=== PATIENT | male | born 1940 | race Caucasian/White ===

== ENCOUNTER → 2019-04-14 12:26 | Outpatient (CLI) | payer MEDICARE, OTHER, SELFPAY ==
--- NOTE | 2019-04-14 12:28 | DI.MRI.S_ITS ---
PROCEDURE: MR LUMBAR SPINE WO CON INDICATIONS: lower back pain TECHNIQUE: Noncontrast sagittal T1 spin echo and T2 fast echo, sagittal STIR, axial T1 and T2 fast spin echo through the lumbar spine. In cases with scoliosis, additional coronal T2 fast spin echo may be performed. COMPARISON: None. FINDINGS: Image quality: Excellent. Alignment and Curvature: There is trace L2-L3 and L3-L4 retrolisthesis. Bone Marrow: Mild reactive endplate changes noted adjacent to the L1-L2, L2-L3, L3-L4, L4-L5 and L5-S1 discs. No acute vertebral body compression fractures. Spinal Cord: Conus medullaris terminates at the L1 level. Visualized cord demonstrates normal signal and size. Paraspinous Soft Tissues: No paravertebral masses. L1-L2: Loss of disc signal and height. Mild, diffuse disc bulge. Mild central canal narrowing. Mild bilateral neural foraminal narrowing. No neural compression. L2-L3: Loss of the signal slight loss of disc height. Mild, diffuse disc bulge and mild bilateral facet hypertrophy. Mild to moderate narrowing of the central canal. Mild bilateral neural foraminal narrowing. No neural compression. L3-L4: Loss of disc signal and slight loss of disc height. Mild, diffuse disc bulge. Mild facet and severe ligamentum flavum hypertrophy. Severe narrowing of the central canal with compression of the nerve roots of the cauda equina. Moderate bilateral neural foraminal narrowing. L4-L5: Loss of disc signal and height. Mild diffuse disc bulge. Mild bilateral facet hypertrophy. Mild to moderate narrowing of the central canal. Severe right and moderate left neural foraminal narrowing with compression of the exiting right L4 nerve root. L5-S1: Loss of disc signal and height. Mild diffuse disc bulge. Mild bilateral facet hypertrophy. No central stenosis. Moderate right and severe left neural foraminal narrowing with compression of the exiting left L5 nerve root. IMPRESSION: 1. Multilevel degenerative disc disease. 2. Multilevel facet arthropathy. 3. Severe L3-L4 central canal narrowing. Mild to moderate L2-L3 and L4-L5 central canal narrowing. Mild L1-L2 central canal narrowing. 4. Severe right and moderate left L4-L5 neural foraminal narrowing. Moderate right and severe left L5-S1 neural foraminal narrowing. Moderate bilateral L3-L4 neural foraminal narrowing. Mild bilateral L1-L2 and L2-L3 neural foraminal narrowing. 5. Compression of the nerves of cauda equina at the level of the L3-L4 disc secondary to central canal narrowing. 6. Compression of the exiting right L4 nerve root and the exiting left L5 nerve root secondary to neural foraminal narrowing. Dictated by: Sunita Santillan MD, PhD on 04/16/2019 at 12:20 Approved by: Sunita Santillan MD, PhD on 04/16/2019 at 12:25
== END ==
PROVIDERS: Family Provider Family Medicine; PCP Family Medicine; Visit Provider Physical Medicine & Rehabilitation
DX: M54.5 Low back pain (principal); M47.27 Other spondylosis with radiculopathy, lumbosacral region; M47.26 Other spondylosis with radiculopathy, lumbar region; M51.36 Other intervertebral disc degeneration, lumbar region; M51.37 Other intervertebral disc degeneration, lumbosacral region; M48.061 Spinal stenosis, lumbar region without neurogenic claudication; M48.07 Spinal stenosis, lumbosacral region
CPT/HCPCS: 72148

== ENCOUNTER 2019-11-01 14:14 | Emergency (ER) | payer MEDICARE, OTHER, SELFPAY ==
[2019-11-01 14:30] VITALS: BP 133/86; PULSE 79; RESP 16; TEMP 36.7; O2SAT 97; BMI 26.6
[2019-11-01 14:50] LABS: Add Manual Diff / Slide Review NO; Basophils Absolute Auto 0 /uL (0-100); Basophils Percent Auto 0.2 % (0-2); Eosinophils Absolute Auto 200 /uL (0-450); Eosinophils Percent Auto 1.8 % (2-4); Hematocrit 45.5 % (41-53); Hemoglobin 15.5 g/dL (13.5-17.5); Lymphocytes Absolute Auto 2400 /uL (1100-4500); Lymphocytes Percent Auto 18.7 % (25-40); Mean Corpuscular HGB Conc 34.1 % (30-36); Mean Corpuscular Hemoglobin 33.9 PG (26-34); Mean Corpuscular Volume 99.6 fL (80-100); Monocytes Absolute Auto 1600 /uL (0-900); Monocytes Percent Auto 12.4 % (3-14); Neutrophils Absolute Auto 8500 /uL (1500-7000); Neutrophils Percent Auto 66.9 % (50-75); Platelet Count 196 X10^3/uL (150-400); Red Blood Cell Count 4.57 X10^6/uL (4.5-5.9); Red Cell Distribution Width 13.7 % (11.6-14.8); White Blood Cell Count 12.7 X10^3/uL (4.5-11.0)
[2019-11-01 14:51] LABS: INR 1.1 (0.9-1.3); Prothrombin Time 13.2 SECONDS (10.1-12.7)
[2019-11-01 14:54] LABS: PTT Partial Thromboplastin Tim 31 SECONDS (26.4-36.2)
[2019-11-01 14:56] LABS: Alanine Aminotransferase 54 IU/L (<50); Albumin 4.5 g/dL (3.5-5.0); Albumin Globulin Ratio 1.4 (1.0-2.8); Alkaline Phosphatase 57 U/L (38-126); Aspartate Aminotransferase 37 IU/L (17-59); BUN Creatinine Ratio 18.9 (6-22); Bilirubin Total 0.8 mg/dL (0.2-1.3); Blood Urea Nitrogen 27 mg/dL (9-20); Calcium 10.5 mg/dL (8.4-10.2); Carbon Dioxide 28 mmol/L (22-32); Chloride 100 mmol/L (98-107); Estimated Glomerular Filt Rate 47.7 mL/min (>60); Globulin 3.2 g/dL (1.7-4.1); Glucose 102 mg/dL (80-110); HEMOLYSIS < 15 (0-50); Potassium 3.7 mmol/L (3.4-5.1); Sodium 137 mmol/L (137-145); Total Protein 7.7 g/dL (6.3-8.2)
--- NOTE | 2019-11-01 15:20 | ED_ITS ---
HPI - GI Bleed <MARQUISE Balderrama - Last Filed: 11/01/19 18:34> General Chief complaint: GI Bleed Stated complaint: PAIN IN STOMACH Time Seen by Provider: 11/01/19 14:34 Mode of arrival: Ambulatory History of Present Illness HPI Narrative: 78-year-old male with a history of stage 3 kidney disease, presenting to the emergency department complaining of mid lower abdominal pain, diarrhea, and bright red blood in his stool for the past 4 days, occurs only when passing stool. Patient states the pain is a cramp like pain that increases before a bowel movement. Patient states he took Pepto-Bismol which has helped a little. He states the bright red blood is mixed in his stool, in the toilet, and on the toilet paper. Patient denies any aggravating or alleviating symptoms. Patient denies any nausea, vomiting, chest pain, fevers, shortness of breath, dizziness, cough, or any other concerns. Related Data Home Medications Medication Instructions Recorded Confirmed valsartan 80 mg tablet 80 mg PO DAILY 04/02/19 11/02/19 Previous Rx's Medication Instructions Recorded allopurinol 300 mg PO QDAY #90 tab 09/01/16 atorvastatin [Lipitor] 20 mg PO Q EVENING #90 tab 09/01/16 triamcinolone acetonide 1 kari TOPICAL SEE INSTRUCTIONS 02/10/17 #454 gm ciprofloxacin HCl 500 mg PO BID 7 Days #14 tab 11/01/19 metronidazole [Flagyl] 500 mg PO TID 7 Days #21 tab 11/01/19 Allergies Allergy/AdvReac Type Severity Reaction Status Date / Time No Known Drug Allergies Allergy Verified 05/21/19 13:52 Review of Systems <MARQUISE Balderrama - Last Filed: 11/01/19 18:34> Review of Systems Narrative: REVIEW OF SYSTEMS: GENERAL: Denies fever, chills, malaise, or wt. loss. HENT: No head trauma, sore throat, or dysphagia. EYES: No loss of vision, double vision, eye pain, or irritation. CARDIOVASCULAR: No chest pain, palpitations, or orthopnea. RESPIRATORY: No shortness of breath or cough. GASTROINTESTINAL: Complains of mid lower abdominal pain, see HPI GENITOURINARY: No flank pain, urinary incontinence, hesitancy, frequency, or dysuria. MUSCULOSKELETAL: No pain, weakness, or trauma. INTEGUMENTARY: No rash, lesions, or pruritus. NEURO: No numbness, tingling, memory loss, confusion, or headaches. PSYCH: No behavior or mood changes. Patient History <MARQUISE Balderrama - Last Filed: 11/01/19 18:34> Medical History (Updated 11/02/19 @ 03:41 by MARQUISE Stephens) Central stenosis of spinal canal (Acute) Dyslipidemia (Acute) Facet arthropathy, lumbosacral (Acute) Foraminal stenosis of lumbosacral region (Acute) Gout (Acute) Hypertension (10/28/15) Lumbosacral spondylosis with radiculopathy (Acute) Surgical History (Updated 11/02/19 @ 03:41 by MARQUISE Stephens) History of appendectomy (Acute) History of cataract surgery (Acute) History of tonsillectomy (Acute) Family History (Updated 11/02/19 @ 03:42 by MARQUISE Stephens) Father Hypertension Mother Rheumatic fever Brother No significant medical problems Social History household members: spouse Smoking Status: Never smoker alcohol intake: current Smoking Status: Never smoker Substance Use Type: does not use Exam <MARQUISE Balderrama - Last Filed: 11/01/19 18:34> Initial Vital Signs Initial Vital Signs: Vital Signs Temperature 98.1 F 11/01/19 14:30 Pulse Rate 79 11/01/19 14:30 Respiratory Rate 16 11/01/19 14:30 Blood Pressure 133/86 11/01/19 14:30 Pulse Oximetry 97 11/01/19 14:30 PHYSICAL EXAMINATION: GENERAL: Well groomed, alert, and cooperative. Answers questions promptly and appropriately. Vital signs noted. HENT: Normocephalic, atraumatic. Decreased hearing, patient worse hearing aids. Oral mucosa is pink and moist. EYES: Conjunctiva pink, sclera white, no periorbital swelling. CARDIOVASCULAR: S1 and S2 sounds normal. Regular rate and rhythm, no murmurs, clicks, or bruits. No pedal edema. RESPIRATORY: Normal respiratory rate, trachea midline, airway patent. No strid or, nasal flaring or accessory muscle use. Lungs are clear in all mullen without wheeze, rhonchi, or crackles. GASTROINTESTINAL: Bowel sounds normoactive. Abdomen is soft, significant diffuse tenderness in particular to right upper quadrant and mid lower abdominal area.. No organomegaly, no palpable masses. RECTAL: Positive stool occult test, hemorrhoids visible. GENITALURINARY: No flank tenderness. MUSCULOSKELETAL: Normal gait and coordination. Equal tone and mass bilaterally. EXTREMITIES: CMS intact, no pedal edema. SKIN: Warm, dry, soft, appropriate color for ethnicity. No lesions, rashes, or wounds to visualized areas. NEURO: Alert and Oriented X 3. Good coordination. No ataxia, or sensory deficits, or cognitive issues. PSYCH: Appropriate affect and mood. <Nori Mohr MD - Last Filed: 11/02/19 07:17> Initial Vital Signs Initial Vital Signs: Vital Signs Temperature 98.1 F 11/01/19 14:30 Pulse Rate 79 11/01/19 14:30 Respiratory Rate 16 11/01/19 14:30 Blood Pressure 133/86 11/01/19 14:30 Pulse Oximetry 97 11/01/19 14:30 Course <MARQUISE Balderrama - Last Filed: 11/01/19 18:34> Course Course Narrative: Patient received ciprofloxacin IV, and Flagyl orally. He was given p.o. fluids and food, tolerated well without vomiting. After much discussion with patient, patient stated he would rather be discharged in stay in a hotel close by the hospital versus be admitted. Dr. Powell presents to the emergency department and agreed that patient is a candidate for outpatient treatment. Orders Ordered: Discontinued Medications Sodium Chloride (Normal Saline 0.9%) 1,000 mls @ 1,000 mls/hr IV BOLUS ONE Stop: 11/01/19 16:34 Last Infusion: 11/01/19 17:54 Dose: 0 mls/hr Documented by: Infusion: 11/01/19 16:32 Dose: 400 mls/hr Documented by: Admin: 11/01/19 15:56 Dose: 1,000 mls/hr Documented by: IWONA Metronidazole (Flagyl) 500 mg in 100 mls @ 100 mls/hr IV NOW ONE Stop: 11/01/19 17:15 Last Admin: 11/01/19 17:08 Dose: Not Given Documented by: IWONA Ciprofloxacin (Cipro) 400 mg in 200 mls @ 200 mls/hr IV NOW [facility] Last Infusion: 11/01/19 17:53 Dose: 0 mls/hr Documented by: Admin: 11/01/19 16:37 Dose: 200 mls/hr Documented by: IWONA Metronidazole (Metronidazole) 500 mg PO NOW ONE Stop: 11/01/19 16:51 Last Admin: 11/01/19 17:06 Dose: 500 mg Documented by: IWONA Metronidazole (Metronidazole) 500 mg PO NOW ONE Stop: 11/01/19 17:58 Last Admin: 11/01/19 18:00 Dose: 500 mg Documented by: IWONA Consultations Consultation #1: Patient staffed with Dr. Mohr, discussed lab results, CT results, and treatment with antibiotics. Consultation #2: Spoke with Dr. Powell who visualized patient, we agreed due to healthy appearance and patient preference, he was a candidate for outpatient treatment with strict ED return precautions. Vital Signs Vital signs: Vital Signs - 8 hr 11/01/19 14:30 11/01/19 17:47 Temperature 98.1 F Pulse Rate 79 80 Respiratory Rate 16 16 Blood Pressure 133/86 125/76 Pulse Oximetry 97 97 <Nori Mohr MD - Last Filed: 11/02/19 07:17> Orders Ordered: Discontinued Medications Sodium Chloride (Normal Saline 0.9%) 1,000 mls @ 1,000 mls/hr IV BOLUS ONE Stop: 11/01/19 16:34 Last Infusion: 11/01/19 17:54 Dose: 0 mls/hr Documented by: Infusion: 11/01/19 16:32 Dose: 400 mls/hr Documented by: Admin: 11/01/19 15:56 Dose: 1,000 mls/hr Documented by: IWONA Metronidazole (Flagyl) 500 mg in 100 mls @ 100 mls/hr IV NOW ONE Stop: 11/01/19 17:15 Last Admin: 11/01/19 17:08 Dose: Not Given Documented by: IWONA Ciprofloxacin (Cipro) 400 mg in 200 mls @ 200 mls/hr IV NOW [facility] Last Infusion: 11/01/19 17:53 Dose: 0 mls/hr Documented by: Admin: 11/01/19 16:37 Dose: 200 mls/hr Documented by: IWONA Metronidazole (Metronidazole) 500 mg PO NOW ONE Stop: 11/01/19 16:51 Last Admin: 11/01/19 17:06 Dose: 500 mg Documented by: IWONA Metronidazole (Metronidazole) 500 mg PO NOW ONE Stop: 11/01/19 17:58 Last Admin: 11/01/19 18:00 Dose: 500 mg Documented by: IWONA Vital Signs Vital signs: Vital Signs - 8 hr 11/01/19 14:30 11/01/19 17:47 Temperature 98.1 F Pulse Rate 79 80 Respiratory Rate 16 16 Blood Pressure 133/86 125/76 Pulse Oximetry 97 97 MDM - GI Bleed <MARQUISE Balderrama - Last Filed: 11/01/19 18:34> Medical Records Attestation: I reviewed the patient's medical records. Lab Data Attestation: I reviewed the patient's lab results. Result diagrams: 11/01/19 14:26 11/01/19 14:26 Labs: Lab Results 11/01/19 11/01/19 11/01/19 Range/Units 14:26 14:26 14:26 WBC 12.7 H (4.5-11.0) X10^3/uL RBC 4.57 (4.5-5.9) X10^6/uL Hgb 15.5 (13.5-17.5) g/dL Hct 45.5 (41-53) % MCV 99.6 (80-100) fL MCH 33.9 (26-34) PG MCHC 34.1 (30-36) % RDW 13.7 (11.6-14.8) % Plt Count 196 (150-400) X10^3/uL Neut % (Auto) 66.9 (50-75) % Lymph % (Auto) 18.7 L (25-40) % Kern % (Auto) 12.4 (3-14) % Eos % (Auto) 1.8 L (2-4) % Baso % (Auto) 0.2 (0-2) % Neut # (Auto) 8500 H (1471-3132) /uL Lymph # (Auto) 2400 (1873-1249) /uL Kern # (Auto) 1600 H (0-900) /uL Eos # (Auto) 200 (0-450) /uL Baso # (Auto) 0 (0-100) /uL PT 13.2 H (10.1-12.7) SECONDS INR 1.1 (0.9-1.3) APTT 31 (26.4-36.2) SECONDS Sodium 137 (137-145) mmol/L Potassium 3.7 (3.4-5.1) mmol/L Chloride 100 (98-107) mmol/L Carbon Dioxide 28 (22-32) mmol/L BUN 27 H (9-20) mg/dL Creatinine 1.43 H (0.66-1.25) mg/dL Estimated GFR 47.7 L (>60) mL/min BUN/Creatinine Ratio 18.9 (6-22) Glucose 102 (80-110) mg/dL Calcium 10.5 H (8.4-10.2) mg/dL Total Bilirubin 0.8 (0.2-1.3) mg/dL AST 37 (17-59) IU/L ALT 54 H (<50) IU/L Alkaline Phosphatase 57 (38-126) U/L Total Protein 7.7 (6.3-8.2) g/dL Albumin 4.5 (3.5-5.0) g/dL Globulin 3.2 (1.7-4.1) g/dL Albumin/Globulin Ratio 1.4 (1.0-2.8) Point of Care Testing Stool Occult Blood Positive Imaging Data CT scan - abdomen/pelvis: Radiologist's Impression: [address] [address] [address] Scan Report Signed Patient: Ranjit Sosa JMR#: [id number] : 1940Acct:[id number] Age/Sex: 78 / MDate of Service: 11/01/19 Loc: ED Accession Number: [id number] Procedure: CT abdomen pelvis w con Ordering Provider: Sara Lopez PROCEDURE: CT ABDOMEN PELVIS W CON INDICATIONS: RUQ, lower mid abd pain with blood in stool TECHNIQUE: After the administration of intravenous contrast, 5 mm thick sections acquired from the diaphragm to the symphysis. 5 mm coronal and sagittal reformats were acquired. For radiation dose reduction, the following was used: automated exposure control, adjustment of mA and/or kV according to patient size. COMPARISON: None. FINDINGS: Image quality: Excellent. ABDOMEN: Lung bases: Lung bases are clear. Heart size is normal. Solid organs: A 1.0 x 2.0 cm hypodensity in the anterior left hepatic lobe adjacent to the falciform ligament most likely secondary to focal fat. Hepatic steatosis. Liver is normal in size and enhancement. Gallbladder is mildly distended. Biliary system is non dilated. Pancreas enhances normally. Spleen is normal in size and enhancement. No adrenal nodules. Kidneys demonstrate normal size and enhancement, without hydronephrosis. Bilateral renal cysts. Peritoneum and bowel: There is segmental thickening of descending colon, consistent with colitis. Appendix is not visualized. Bowel loops demonstrate normal wall thickness and caliber. No free fluid or air. Nodes and vessels: No retroperitoneal or mesenteric adenopathy by size criteria. Aorta and inferior vena cava are normal in size. Miscellaneous: No ventral hernias. PELVIS: Genitourinary: Bladder wall thickness is normal. Small Hutch bladder diverticulum on the right side. Prostate is enlarged. Miscellaneous: No inguinal hernias or adenopathy. Bones: No suspicious bony lesions. No vertebral body compression fractures. IMPRESSION: 1. Segmental thickening of descending colon consistent with segmental colitis. Please correlate clinically. After adequate treatment, colonoscopy is suggested for followup evaluation to rule out colon cancer patient could have similar CT appearance. 2. Diverticulosis without acute diverticulitis. 3. Enlarged prostate. 4. Hepatic steatosis. 5. Bilateral renal cysts. Dictated by: Tana Broussard M.D. on 11/01/2019 at 15:39 Approved by: Tana Broussard M.D. on 11/01/2019 at 15:50 ECG Data Interpretation: Normal sinus rhythm, rate 76, OK interval 165, QTC 419. No ST elevation or ST depression. Small RBBB. EKG viewed by Dr. Mohr per potrocael. [facility] Narrative Medical decision making narrative: 78yo male with history of stage 3 chronic kidney disease, presenting to the emergency department for abdominal pain and blood in stools. CT results show colitis. Differential includes infectious colitis (most likely due to elevated WBC, was patient does not have an autoimmune history, segment appearance, and recent duration since onset), autoimmune colitis, and malignancy (further study suggested after resolution of current inflammatory colitis seen on CT). Less likely perforation due to pain control without any medications, CT shows no findings of perforation Patient was well-appearing, hemodynamically stable, able to eat and drink without vomiting or severe nausea. Pain was controlled without pain medication. Dr. Powell was consulted about possible admit versus discharge, after evaluation and discussion with patient about preference, patient was discharged. He does live on [facility] but states he is going to stay at a hotel in [place] this evening to be able to return to the emergency department quickly if symptoms worsen. Patient was counseled extensively about return emergency department for any new or worsening symptoms. He agrees to plan of care verbalized understanding. We discussed the importance of close follow-up in the next week. We attempted to get a stool sample in the emergency department today, patient was not able to give one. Less concern for acute blood loss as hemoglobin and hematocrit are stable, no bleeding heard in the emergency department over 3-4 hours, and patient was not symptomatic. Additionally, patient reported blood only when passing stool. <Nori Mohr MD - Last Filed: 11/02/19 07:17> Lab Data Labs: Lab Results 11/01/19 11/01/19 11/01/19 Range/Units 14:26 14:26 14:26 WBC 12.7 H (4.5-11.0) X10^3/uL RBC 4.57 (4.5-5.9) X10^6/uL Hgb 15.5 (13.5-17.5) g/dL Hct 45.5 (41-53) % MCV 99.6 (80-100) fL MCH 33.9 (26-34) PG MCHC 34.1 (30-36) % RDW 13.7 (11.6-14.8) % Plt Count 196 (150-400) X10^3/uL Neut % (Auto) 66.9 (50-75) % Lymph % (Auto) 18.7 L (25-40) % Kern % (Auto) 12.4 (3-14) % Eos % (Auto) 1.8 L (2-4) % Baso % (Auto) 0.2 (0-2) % Neut # (Auto) 8500 H (3004-1864) /uL Lymph # (Auto) 2400 (9953-1980) /uL Kern # (Auto) 1600 H (0-900) /uL Eos # (Auto) 200 (0-450) /uL Baso # (Auto) 0 (0-100) /uL PT 13.2 H (10.1-12.7) SECONDS INR 1.1 (0.9-1.3) APTT 31 (26.4-36.2) SECONDS Sodium 137 (137-145) mmol/L Potassium 3.7 (3.4-5.1) mmol/L Chloride 100 (98-107) mmol/L Carbon Dioxide 28 (22-32) mmol/L BUN 27 H (9-20) mg/dL Creatinine 1.43 H (0.66-1.25) mg/dL Estimated GFR 47.7 L (>60) mL/min BUN/Creatinine Ratio 18.9 (6-22) Glucose 102 (80-110) mg/dL Calcium 10.5 H (8.4-10.2) mg/dL Total Bilirubin 0.8 (0.2-1.3) mg/dL AST 37 (17-59) IU/L ALT 54 H (<50) IU/L Alkaline Phosphatase 57 (38-126) U/L Total Protein 7.7 (6.3-8.2) g/dL Albumin 4.5 (3.5-5.0) g/dL Globulin 3.2 (1.7-4.1) g/dL Albumin/Globulin Ratio 1.4 (1.0-2.8) Point of Care Testing Stool Occult Blood Positive Discharge Plan Departure Patient Disposition: Home Clinical Impression: Colitis Discharge Date/Time: 11/01/19 18:01 Instructions: DI for Colitis Activity Restrictions/Additional Instructions: Thank you for entrusting me with your care today. As discussed, you have col itis. We are unsure the exact cause of this at this time but suspect this is most likely due to a bacteria. I prescribed you antibiotics, you must take both antibiotics as prescribed. As we discussed, it is a good idea to stay in [place] this evening in case your condition worsens so you can return to the hospital immediately. I have given you the 1st dose of your antibiotics in the emergency department and we have given you an additional dose of metronidazole take this evening. Please tow picker your prescriptions tomorrow morning. Your prescriptions were sent to [facility]. Do not drink alcohol with these medications, it will make you violently ill. Do not increased or engage in any unusual strenuous activity as a side effect of ciprofloxacin may cause tendon rupture, extensive activity worsens this risk. Continue to drink fluid, you may eat food as tolerated. Follow-up with your primary care provider in the next week for further evaluation. The radiologist reading your CT recommends a colonoscopy after infection has resolved. Incidental findings found on imaging include: Diverticulosis, enlarged prostate, and cysts on her kidneys. Please discussed these with your primary care provider. Return to the emergency department immediately for any new or worsening symptoms such as severe pain, increased blood in stools, high fevers, uncontrollable vomiting, or any other concerns. Prescriptions: New metronidazole [Flagyl] 500 mg tablet 500 mg PO TID 7 Days Qty: 21 RF: 0 ciprofloxacin HCl 500 mg tablet 500 mg PO BID 7 Days Qty: 14 RF: 0 No Action atorvastatin [Lipitor] 20 MG tablet 20 mg PO Q EVENING Qty: 90 RF: 3 allopurinol 300 MG tablet 300 mg PO QDAY Qty: 90 RF: 3 triamcinolone acetonide 0.1 % cream 1 kari Topical SEE INSTRUCTIONS Qty: 454 RF: 3 valsartan 80 mg tablet 80 mg PO DAILY RF: 0 Referrals: Chidi Singleton MD [Primary Care Provider] -
[2019-11-01] MEDS: SODIUM CHLORIDE 0.9% 1,000 ML 1000 ML IV (15:56)
[2019-11-01] MEDS: CIPROFLOXACIN 400 MG/200 ML PIGGYBACK 200 MG IV (16:37)
--- NOTE | 2019-11-01 16:45 | PM.CN ---
History of Present Illness Consult details Date Patient Seen: 11/01/19 Time Patient Seen: 16:45 Chief complaint: PAIN IN STOMACH Reason for consult: abdominal pain Requesting provider: Sara Lopez Narrative: Ranjit Sosa is a 78-year-old male with past medical history of CKD 3, hypertension, and spinal stenosis who presented to the emergency room with bright red blood per rectum for the past 3-4 days. He denies any fevers or chills, and denies any abdominal pain at rest but does note some left lower quadrant pain when getting up to stand. He has been tolerating oral intake with fluid and water. He denies any nausea or vomiting. He denies any weight loss or weight gain. His abdominal pain did not seem to be worse with meals. In the emergency room, his vital signs are unremarkable, lab studies were notable for a mild leukocytosis at 12.7, hemoglobin of 15.5, and a platelet count of 196. Chemistry showed a creatinine of 1.43 (baseline appears to approximately be 1.2), BUN of 27, mild ALT elevation at 54 and calcium at 10.5 with an elevated albumin at 4.5. CT imaging showed segmental colitis and diverticulosis but no diverticulitis. Medicine was consulted for further evaluation and possible admission. Upon my evaluation he was well-appearing in nature and did not have a significant amount of left lower quadrant pain. Patient endorsed that he would be amenable to a trial at home of antibiotics to see if there is improvement. He lives on [facility] but [facility]. Meds Home Medications and Allergies Home Medications Medication Instructions Recorded Confirmed Type allopurinol 300 mg PO QDAY #90 tab 09/01/16 05/21/19 Rx atorvastatin [Lipitor] 20 mg PO Q EVENING #90 tab 09/01/16 05/21/19 Rx triamcinolone acetonide 1 kari TOPICAL SEE INSTRUCTIONS 02/10/17 05/21/19 Rx #454 gm valsartan 80 mg tablet 80 mg PO DAILY 04/02/19 05/21/19 History Allergies Allergy/AdvReac Type Severity Reaction Status Date / Time No Known Drug Allergies Allergy Verified 05/21/19 13:52 Review of Systems Review of Systems Narrative: All other systems reviewed with the patient and are negative unless otherwise stated. Exam Vital Signs (past 8 hours): - 11/01/19 14:30 Temperature 98.1 F Pulse Rate 79 Respiratory Rate 16 Blood Pressure 133/86 Pulse Oximetry 97 Oxygen Delivery Method Room Air Narrative Exam Narrative: GENERAL APPEARANCE: Well developed, well nourished, elderly male in no acute distress. LUNGS: Auscultation of the lungs revealed no wheezes, rhonchi, or rales. CARDIOVASCULAR: There was a regular rate and rhythm without any murmurs, gallops, rubs. Peripheral pulses were 2+ and symmetric. ABDOMEN: Soft, mildly distended with mild left lower quadrant pain. There was no guarding or rebound. MUSCULOSKELETAL: There was no tenderness or effusions noted. Muscle strength and tone were normal. EXTREMITIES: No cyanosis, clubbing or edema. NEUROLOGIC: Alert and oriented x 3. Normal affect. Objective Imaging CT scan - abdomen: Radiologist's impression: 1. Segmental thickening of descending colon consistent with segmental colitis. Please correlate clinically. After adequate treatment, colonoscopy is suggested for followup evaluation to rule out colon cancer patient could have similar CT appearance. 2. Diverticulosis without acute diverticulitis. 3. Enlarged prostate. 4. Hepatic steatosis. 5. Bilateral renal cysts. Labs Result Diagrams: 11/01/19 14:26 11/01/19 14:26 Labs: Laboratory Results - last 24 hr 11/01/19 11/01/19 11/01/19 14:26 14:26 14:26 WBC 12.7 H RBC 4.57 Hgb 15.5 Hct 45.5 MCV 99.6 MCH 33.9 MCHC 34.1 RDW 13.7 Plt Count 196 Neut % (Auto) 66.9 Lymph % (Auto) 18.7 L [place] % (Auto) 12.4 Eos % (Auto) 1.8 L Baso % (Auto) 0.2 Neut # (Auto) 8500 H Lymph # (Auto) 2400 [place] # (Auto) 1600 H Eos # (Auto) 200 Baso # (Auto) 0 PT 13.2 H INR 1.1 APTT 31 Sodium 137 Potassium 3.7 Chloride 100 Carbon Dioxide 28 BUN 27 H Creatinine 1.43 H Estimated GFR 47.7 L BUN/Creatinine Ratio 18.9 Glucose 102 Calcium 10.5 H Total Bilirubin 0.8 AST 37 ALT 54 H Alkaline Phosphatase 57 Total Protein 7.7 Albumin 4.5 Globulin 3.2 Albumin/Globulin Ratio 1.4 Assessment & Plan Assessment & Plan narrative: Ranjit Sosa is a 78-year-old male with past medical history of CKD 3, hypertension, and spinal stenosis who presented to the emergency room with bright red blood per rectum for the past 3-4 days. 1. Segmental colitis associated with diverticulosis. Acute -given clinical constellation of symptoms and CT imaging this likely represents segmental colitis associated with diverticulosis, or SCAD. Given patient is well-appearing, and although labs are borderline with mild leukocytosis, I do think that he would do well with outpatient treatment. He will stick around [place] this evening to see if antibiotics are clinically helping him. He should be given return precautions. -recommend treatment with ciprofloxacin and Flagyl for a duration of 14 days -he should follow-up with his primary care provider and be referred for a colonoscopy as an outpatient. -further differential includes malignancy, other infectious colitis, ischemia (however this is unlikely at this time given his well appearance and lack of pain out of proportion), less likely diverticulitis or IBD. Please do not hesitate to contact the hospitalist tax consultant with additional questions if they arise.
[2019-11-01] MEDS: metroNIDAZOLE 250 MG TABLET 500 MG PO ×2 (17:06→18:00)
[2019-11-01 17:47] VITALS: BP 125/76; PULSE 80; RESP 16; O2SAT 97
--- NOTE | 2019-11-10 15:16 | PC.NURSE ---
pt called wondering if should take flagl, consult dr. saha, pt should be taking vancomycin only, spoke with pt and he is doing that.
== END 2019-11-01 18:01 | disposition home or self-care (01) ==
PROVIDERS: Emergency Provider Nurse Practitioner; Family Provider Family Medicine; PCP Family Medicine
DX: K52.9 Noninfective gastroenteritis and colitis, unspecified (principal); K92.1 Melena; N18.6 End stage renal disease
CPT/HCPCS: 36415; 74177; 80053; 82272; 85025; 85610; 85730; 93005; 96365; 99284; J0744; Q9967

== ENCOUNTER 2019-11-02 01:57 | Inpatient (IN) | payer MEDICARE, OTHER, SELFPAY ==
[2019-11-02] VITALS (15 sets, daily range): BP systolic 103–134; BP diastolic 65–79; PULSE 67–92; RESP 15–18; TEMP 36.5–37.1; O2SAT 94–100; BMI 25.8
--- NOTE | 2019-11-02 02:04 | ED_ITS ---
HPI - General Adult General Chief complaint: Abdominal Pain Stated complaint: colitis Time Seen by Provider: 11/02/19 01:58 Source: patient Mode of arrival: Ambulatory Limitations: no limitations History of Present Illness HPI narrative: 78-year-old male seen in the emergency department earlier this evening for abdominal pain. Was diagnosed with colitis. Was given a dose of Cipro and Flagyl. Was evaluated by hospitalist service for potential admission however according to their note and the ED provider's note appears the patient was very well-appearing and normal vital signs pain is controlled without medic ation and was tolerating oral intake so a trial of home antibiotic treatment was initiated. He has not taken any oral antibiotics. He did stay in the local area last evening. He states that since he was discharged pain is increased specifically his left lower quadrant. Has not had any bowel movement since he left. No nausea vomiting. No fevers. He returned because the pain. Related Data Home Medications Medication Instructions Recorded Confirmed valsartan 80 mg tablet 80 mg PO DAILY 04/02/19 05/21/19 Previous Rx's Medication Instructions Recorded allopurinol 300 mg PO QDAY #90 tab 09/01/16 atorvastatin [Lipitor] 20 mg PO Q EVENING #90 tab 09/01/16 triamcinolone acetonide 1 kari TOPICAL SEE INSTRUCTIONS 02/10/17 #454 gm ciprofloxacin HCl 500 mg PO BID 7 Days #14 tab 11/01/19 metronidazole [Flagyl] 500 mg PO TID 7 Days #21 tab 11/01/19 Allergies Allergy/AdvReac Type Severity Reaction Status Date / Time No Known Drug Allergies Allergy Verified 05/21/19 13:52 Review of Systems Constitutional Constitutional: Denies fever(s) Gastrointestinal Gastrointestinal: Reports abdominal pain, Denies change in stool character, Denies nausea and Denies vomiting Musculoskeletal Musculoskeletal: Denies myalgias and Denies arthralgias Integumentary/Breasts Skin/Breast: Denies lesions and Denies rash Neurologic Neurologic: Denies behavioral changes Psychiatric Psychiatric: Denies behavioral changes Hematologic/Lymphatic Hematologic/Lymphatic: Denies easy bleeding and Denies easy bruising Patient History Medical History Central stenosis of spinal canal (Acute) Facet arthropathy, lumbosacral (Acute) Foraminal stenosis of lumbosacral region (Acute) Lumbosacral spondylosis with radiculopathy (Acute) Social History Smoking Status: Never smoker Smoking Status: Never smoker Substance Use Type: does not use Exam Initial Vital Signs Initial Vital Signs: Vital Signs Temperature 98.2 F 11/02/19 02:05 Pulse Rate 92 H 11/02/19 02:05 Respiratory Rate 15 11/02/19 02:05 Blood Pressure 130/72 11/02/19 02:05 Pulse Oximetry 100 11/02/19 02:05 Const General: cooperative Limitations: mental status not altered HENMT Head: normal to inspection and normocephalic Resp Effort & Inspection: normal respiratory effort Auscultation: clear to auscultation bilaterally Cardio Rate: regular rate Rhythm: regular rhythm GI Inspection: non-distended Palpation: soft and tender (Left lower quadrant) Skin Rashes: no rashes Neuro General: alert and awake Cognition: normal cognition Speech: speech normal Extrem General: normal to inspection and capillary refill normal Psych Appearance: grossly normal and well kempt Course Orders Ordered: ED Orders 11/02/19 02:08 Lactate (Lactic Acid) Stat 11/02/19 02:17 Complete Blood Count AUTO DIFF Stat 11/02/19 02:18 Comprehensive Metabolic Panel Stat Lipase Stat Procalcitonin Stat Sodium Chloride (Normal Saline 0.9%) 1,000 mls @ 125 mls/hr IV CONT PEPITO Last Admin: 11/02/19 02:14 Dose: 125 mls/hr Documented by: ALEXA Discontinued Medications Morphine Sulfate (Morphine) 4 mg IV NOW ONE Stop: 11/02/19 02:07 Last Admin: 11/02/19 02:15 Dose: 4 mg Documented by: ALEXA Vital Signs Vital signs: Vital Signs - 8 hr 11/02/19 02:05 Temperature 98.2 F Pulse Rate 92 H Respiratory Rate 15 Blood Pressure 130/72 Pulse Oximetry 100 Medical Decision Making MDM Narrative Medical decision making narrative: Review the patient's note and CT scan from earlier showed a slight leukocytosis with a slight elevation in his creatinine and what looked to be in apparent isolated colitis left lower quadrant. Patient was given a dose of antibiotics prior to discharge in the taking anything since then. Returns because he has had increasing pain specifically in his left lower quadrant that he states was worse than when he 1st came in the emergency department yesterday. Discussed the case with hospitalist will admit for further evaluation and treatment. Discharge Plan Departure Patient Disposition: Admitted as Observation Clinical Impression: Colitis Referrals: Chidi Singleton MD [Primary Care Provider] -
[2019-11-02] MEDS: SODIUM CHLORIDE 0.9% 1,000 ML 125 ML IV ×5 (02:14→14:05)
[2019-11-02] MEDS: MORPHINE 4 MG/ML INJ IV (02:15)
[2019-11-02 02:34] LABS: Add Manual Diff / Slide Review NO; Basophils Absolute Auto 0 /uL (0-100); Basophils Percent Auto 0.3 % (0-2); Eosinophils Absolute Auto 200 /uL (0-450); Eosinophils Percent Auto 1.8 % (2-4); Hematocrit 43.2 % (41-53); Hemoglobin 14.8 g/dL (13.5-17.5); Lymphocytes Absolute Auto 1800 /uL (1100-4500); Lymphocytes Percent Auto 13.9 % (25-40); Mean Corpuscular HGB Conc 34.2 % (30-36); Mean Corpuscular Volume 99.3 fL (80-100); Monocytes Absolute Auto 1500 /uL (0-900); Monocytes Percent Auto 11.4 % (3-14); Neutrophils Absolute Auto 9600 /uL (1500-7000); Neutrophils Percent Auto 72.6 % (50-75); Platelet Count 184 X10^3/uL (150-400); Red Blood Cell Count 4.35 X10^6/uL (4.5-5.9); Red Cell Distribution Width 13.6 % (11.6-14.8); White Blood Cell Count 13.2 X10^3/uL (4.5-11.0)
[2019-11-02 02:41] LABS: Magnesium 1.6 mg/dL (1.6-2.3)
[2019-11-02 02:43] LABS: Alanine Aminotransferase 47 IU/L (<50); Albumin 4.1 g/dL (3.5-5.0); Albumin Globulin Ratio 1.4 (1.0-2.8); Alkaline Phosphatase 79 U/L (38-126); Aspartate Aminotransferase 35 IU/L (17-59); BUN Creatinine Ratio 21.8 (6-22); Bilirubin Total 0.5 mg/dL (0.2-1.3); Blood Urea Nitrogen 31 mg/dL (9-20); Calcium 9.5 mg/dL (8.4-10.2); Carbon Dioxide 23 mmol/L (22-32); Chloride 105 mmol/L (98-107); Estimated Glomerular Filt Rate 48.1 mL/min (>60); Glucose 136 mg/dL (80-110); HEMOLYSIS 18 (0-50); Lipase 156 U/L (23-300); Sodium 138 mmol/L (137-145); Total Protein 7.1 g/dL (6.3-8.2)
[2019-11-02 02:59] LABS: Procalcitonin < 0.05 ng/mL (<0.5)
[2019-11-02] MEDS: metroNIDAZOLE 500 MG/100 ML PIGGYBACK 100 MG IV ×2 (02:59→10:20)
--- NOTE | 2019-11-02 03:25 | P.HP_ITS ---
History of Present Illness History of Present Illness Date Patient Seen: 11/02/19 Time Patient Seen: 03:11 Chief complaint: colitis Narrative: Mr. Ranjit Sosa is a 78-year-old male with past medical history of CKD 3, hypertension, hyperlipidemia, gout and spinal stenosis who returns to the emergency department with worsening abdominal pain. He had presented to the emergency room yesterday afternoon with complaints of bright red blood per rectum for the past 3-4 days. At that time he complains of pain in the left lower quadrant that describes as dull and aching. He returns this morning with worsening pain stating he has been unable to sleep and could not lay on his side and reports abdominal distension. He rates his pain as 7/10. He continues to d artis having fevers or chills and has had no further bloody stools since yesterday morning. The patient was discharged from the ER this afternoon on oral antibiotics with a follow-up plan to which the patient was agreeable. He was provided prescription for Cipro and Flagyl which she had not yet obtained. Following discharge the patient consumed a steak and potatoes and salad dinner and stated a local hotel as he lives on [facility]. He denies complaints of headaches or dizziness, flu or cold symptoms. He has had no chest pain or palpitations, shortness of breath cough or wheezing. Has had no heartburn, nausea or vomiting. He denies difficulty urinating. He is independent in all activities of daily living. Upon arrival to the ER the patient remains afebrile with a temperature of 98.2?, heart rate 92, blood pressure 130/72, respirations 15 saturating 100% on room air. CT exam obtained earlier showed segmental colitis and diverticulosis without diverticulitis. On laboratory analysis the patient has had an increase in his white count from 12.7-13.2. His hemoglobin dropped from 15.5 to 14.8 without continued evidence of bleeding. On chemistries electrolytes are within normal range and has a BUN increased to 31 from 10/02 and a stable creatinine tonight at 1.42. His magnesium is 1.6 and his liver functions are within normal limits and has a lipase of 156. His lactate is 1.0 and procalcitonin is less than 0.05. EKG obtained earlier today shows a sinus rhythm with ventricular rate of 76 and a right bundle branch block. Does have inverted T-waves in lead 3 and V1 and V2. Patient is admitted to the medicine service for colitis. Patient History Medical History (Updated 11/02/19 @ 03:41 by MARQUISE Stephens) Central stenosis of spinal canal (Acute) Dyslipidemia (Acute) Facet arthropathy, lumbosacral (Acute) Foraminal stenosis of lumbosacral region (Acute) Gout (Acute) Hypertension (10/28/15) Lumbosacral spondylosis with radiculopathy (Acute) Surgical History (Updated 11/02/19 @ 03:41 by MARQUISE Stephens) History of appendectomy (Acute) History of cataract surgery (Acute) History of tonsillectomy (Acute) Family & Social History Family History (Updated 11/02/19 @ 03:42 by MARQUISE Stephens) Father Hypertension Mother Rheumatic fever Brother No significant medical problems Safety & Behavioral: Feels Safe in Current Yes Environment Tobacco & Substance use: Smoking Status Never smoker Substance Use Type does not use Comment: The patient lives in a single family home on [facility] with his to whom he has been for 30 years. His father lived to be 90 with a history of hypertension and in his sleep. His mother was in poor health following having rheumatic fever passing away in her 60s. There is no immediate family history of diabetes or cancer. 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 Alcohol: Patient endorses consuming 1 drink per day. Substance use: Patient denies recreational pharmaceuticals, herbal or cannabis products. Advanced directives: Patient states his wish to be FULL CODE and desires no prolonged life-sustaining treatment. He designates his to be his surrogate decision maker. Meds Home Medications and Allergies Home Medications Medication Instructions Recorded Confirmed Type allopurinol 300 mg PO QDAY #90 tab 09/01/16 11/02/19 Rx atorvastatin [Lipitor] 20 mg PO Q EVENING #90 tab 09/01/16 11/02/19 Rx triamcinolone acetonide 1 kari TOPICAL SEE INSTRUCTIONS 02/10/17 11/02/19 Rx #454 gm valsartan 80 mg tablet 80 mg PO DAILY 04/02/19 11/02/19 History ciprofloxacin HCl 500 mg PO BID 7 Days #14 tab 11/01/19 11/02/19 Rx metronidazole [Flagyl] 500 mg PO TID 7 Days #21 tab 11/01/19 11/02/19 Rx Allergies Allergy/AdvReac Type Severity Reaction Status Date / Time No Known Drug Allergies Allergy Verified 05/21/19 13:52 Review of Systems Review of Systems ROS: Yes All systems reviewed with the patient and are negative except as otherwise documented Exam Vital Signs (past 8 hours): - 11/02/19 02:05 11/02/19 02:35 11/02/19 02:55 Temperature 98.2 F 98.0 F Pulse Rate 92 H 88 84 Respiratory Rate 15 16 18 Blood Pressure 130/72 119/73 Blood Pressure [Right Arm] 124/72 Pulse Oximetry 100 95 Oxygen Delivery Method Room Air Oxygen Flow Rate 95 Narrative Exam Narrative: GENERAL APPEARANCE: well developed, well nourished, lying supine in bed a comfortable-appearing. HEENT: Normocephalic, PERRLA, conjunctiva clear, EOMs intact without nystagmus, no rhinorrhea, mucous membranes are moist and pink without lesions or exudate. NECK/THYROID: neck supple, no JVD, no thyromegaly, trachea midline. LYMPH NODES: no cervical or supraclavicular lymphadenopathy. SKIN: [place], warm and dry, no visible lesions, rashes, ulcerations or petechiae. HEART: regular rate and rhythm, S1-S2, no murmur, no rubs or gallops, brisk capillary refill, no edema LUNGS: clear to auscultation bilaterally, no coarseness crackles or wheezing, no cough present CHEST: Symmetrical movement, no accessory muscle use, good tidal volume no abdominal pain with deep inspiration. ABDOMEN: Soft, distended, tympanitic to percussion, abdominal pain in all quadrants, no guarding, peritoneal sign with heel strike, no organomegaly, no flank or suprapubic tenderness, active bowel tones. EXTREMITIES: moves all extremities, strength is 5/5 and symmetrical, no deformities or joint effusions. NEUROLOGIC: AAO x4, cranial nerves II-XII grossly intact, sensation intact to light touch, hearing grossly normal to speech. PSYCH: Anxious, good eye contact, cooperative. Objective Imaging CT scan - abdomen: Radiologist's impression: 1. Segmental thickening of descending colon consistent with segmental colitis. Please correlate clinically. After adequate treatment, colonoscopy is suggested for followup evaluation to rule out colon cancer patient could have similar CT appearance. 2. Diverticulosis without acute diverticulitis. 3. Enlarged prostate. 4. Hepatic steatosis. 5. Bilateral renal cysts. Labs Result Diagrams: 11/02/19 02:10 11/02/19 02:10 Labs: Laboratory Results - last 24 hr 11/02/19 11/02/19 11/02/19 02:10 02:10 02:10 WBC 13.2 H RBC 4.35 L Hgb 14.8 Hct 43.2 MCV 99.3 MCH 34.0 MCHC 34.2 RDW 13.6 Plt Count 184 Neut % (Auto) 72.6 Lymph % (Auto) 13.9 L [place] % (Auto) 11.4 Eos % (Auto) 1.8 L Baso % (Auto) 0.3 Neut # (Auto) 9600 H Lymph # (Auto) 1800 [place] # (Auto) 1500 H Eos # (Auto) 200 Baso # (Auto) 0 Sodium Potassium Chloride Carbon Dioxide BUN Creatinine Estimated GFR BUN/Creatinine Ratio Glucose Lactate 1.0 Calcium Magnesium Total Bilirubin AST ALT Alkaline Phosphatase Total Protein Albumin Globulin Albumin/Globulin Ratio Lipase Procalcitonin < 0.05 11/02/19 11/02/19 02:10 02:10 WBC RBC Hgb Hct MCV MCH MCHC RDW Plt Count Neut % (Auto) Lymph % (Auto) [place] % (Auto) Eos % (Auto) Baso % (Auto) Neut # (Auto) Lymph # (Auto) [place] # (Auto) Eos # (Auto) Baso # (Auto) Sodium 138 Potassium 4.0 Chloride 105 Carbon Dioxide 23 BUN 31 H Creatinine 1.42 H Estimated GFR 48.1 L BUN/Creatinine Ratio 21.8 Glucose 136 H Lactate Calcium 9.5 Magnesium 1.6 Total Bilirubin 0.5 AST 35 ALT 47 Alkaline Phosphatase 79 Total Protein 7.1 Albumin 4.1 Globulin 3.0 Albumin/Globulin Ratio 1.4 Lipase 156 Procalcitonin Assessment & Plan Assessment & Plan narrative: This is a 78-year-old male who presented to the ER yesterday afternoon complaining of left lower quadrant abdominal pain that was stable and was discharged on antibiotics only to return tonight with worsening abdominal pain. 1. Segmental colitis, probable diverticulitis, acute, present on admission, ac tive -the patient returns with worsening abdominal pain now characterizes generalized at 7/10, mild peritoneal sign without fever. The patient states his abdomen is more distended and has had no further bowel movements or rectal bleeding. -CT imaging obtained this afternoon segmental thickening of descending colon, consistent with colitis. -increasing leukocytosis from 12.7-13.2 in 12 hours, negative procalcitonin at less than 0.05 and lactic acid of 1.0. -patient been discharged from the ER this afternoon on oral Cipro and Flagyl following a dose of each administered IV in the ER. -ordered Cipro 400 mg IV every 12 hours. -ordered metronidazole 500 mg IV every 8 hours. -will consider reimaging if patient's condition deteriorates further. -will request surgical consult for worsening abdominal pain. -will obtain GI PCR panel to evaluate for infectious etiology. -patient remain NPO, normal saline 100 cc/hour. 2. Chronic kidney disease stage 3, present on admission, active -patient has a stable creatinine, this afternoon was found to be 1.43, this morning is 1.42. BUN is elevated from 27 to 31. Baseline creatinine is 1.2. -the patient does not present as dehydrated and has been eating and drinking. -will continue hydration with normal saline at 100 cc/hour. -will avoid renal toxic agents though the patient's creatinine did not worsen following CT with contrast. -will renal dose medications as indicated. -will follow renal function. 3. Hypertension, chronic, stable. -adequate blood pressure control with pressure of 130/72 on admission. -will continue patient's home regimen of valsartan 80 mg daily. 4. Dyslipidemia, chronic, stable. Will continue patient's home regimen of atorvastatin 20 mg daily at bedtime. 5. Gout, chronic, stable. -patient reports last gouty flare was over 2 years ago, no history of kidney stones. -will continue allopurinol 300 mg daily. VTE prophylaxis: Bilateral SCDs, no chemical prophylaxis due to rectal bleeding. IV fluid: Normal saline 100 cc/hour. Diet: NPO Code status: FULL CODE. The patient is admitted to the hospital for worsening abdominal pain, colitis and rectal bleeding. The patient is admitted as an inpatient with expected length of stay to be greater than 2 midnights. Scores GCS Tommy coma scale eye opening: Spontaneous Tommy coma scale verbal response: Orientated Aneta coma scale motor response: Obey commands Aneta coma scale total score: 15
--- NOTE | 2019-11-02 03:51 | PC.NURSE ---
0245 Admitted to room 215, diagnosed with Colitis. Instructed to call for assistance if he needed to get up OOB. Showed how to used his call light, bed & TV controls. C/O being so tired & requesting to let him sleep. Will cont. POC & monitor.
[2019-11-02] MEDS: CIPROFLOXACIN 400 MG/200 ML PIGGYBACK 200 MG IV (04:25)
--- NOTE | 2019-11-02 09:54 | PM.PN.1 ---
Subjective Subjective Date Patient Seen: 11/02/19 Time Patient Seen: 09:54 Interval history: Mr. Ranjit Sosa is a 78-year-old male with past medical history of CKD 3, hypertension, hyperlipidemia, gout and spinal stenosis who returns to the emergency department with worsening abdominal pain. He had presented to the emergency room yesterday afternoon with complaints of bright red blood per rectum for the past 3-4 days. He was initially discharged from the emergency room but came back with worsening abdominal pain and distension and was then admitted for segmental colitis. His pain has not changed much today, but he has not taken any pain medication up to this point. He continues to deny any nausea or vomiting. He has not had a bowel movement since yesterday morning. Exam Vital Signs (past 8 hours): - 11/02/19 02:05 11/02/19 02:35 11/02/19 02:51 Temperature 98.2 F Pulse Rate 92 H 88 Respiratory Rate 15 16 Blood Pressure 130/72 Blood Pressure [Right Arm] 124/72 Pulse Oximetry 100 95 95 11/02/19 02:55 11/02/19 05:46 11/02/19 06:19 Temperature 98.0 F 98.0 F Pulse Rate 84 74 Respiratory Rate 18 16 Blood Pressure 119/73 103/65 Blood Pressure [Right Arm] Pulse Oximetry 95 95 95 11/02/19 09:00 Temperature 98.7 F Pulse Rate 69 Respiratory Rate 16 Blood Pressure 106/67 Blood Pressure [Right Arm] Pulse Oximetry 94 Oxygen Delivery Method Room Air Oxygen Flow Rate 0 Narrative Exam Narrative: GENERAL APPEARANCE: Well developed, well nourished, in no acute distress but winces in pain with laugh. SKIN: Inspection of the skin reveals no rashes, ulcerations or petechiae. HEENT: Normocephalic atraumatic, extraocular muscles are intact, oropharynx is clear and mucous membranes are moist, neck is supple without adenopathy NECK: Supple and symmetric. There was no thyroid enlargement, and no tenderness, or masses were felt. CHEST: Normal AP diameter and normal contour without any kyphoscoliosis. LUNGS: Auscultation of the lungs revealed no wheezes, rhonchi, or rales. CARDIOVASCULAR: There was a regular rate and rhythm without any murmurs, gallops, rubs. Peripheral pulses were 2+ and symmetric. ABDOMEN: Soft and mildly distended with normal bowel sounds. Tender in left lower quadrant. MUSCULOSKELETAL: There was no tenderness or effusions noted. Muscle strength and tone were normal. EXTREMITIES: No cyanosis, clubbing or edema. NEUROLOGIC: Alert and oriented x 3. Normal affect. Gait was normal. Strength is +5/5 in the Upper Extremities and Lower Extremities Bilaterally. Sensation to touch was normal. Objective Labs Result Diagrams: 11/02/19 02:10 11/02/19 02:10 Labs: Laboratory Results - last 24 hr 11/02/19 11/02/19 11/02/19 02:10 02:10 02:10 WBC 13.2 H RBC 4.35 L Hgb 14.8 Hct 43.2 MCV 99.3 MCH 34.0 MCHC 34.2 RDW 13.6 Plt Count 184 Neut % (Auto) 72.6 Lymph % (Auto) 13.9 L [place] % (Auto) 11.4 Eos % (Auto) 1.8 L Baso % (Auto) 0.3 Neut # (Auto) 9600 H Lymph # (Auto) 1800 [place] # (Auto) 1500 H Eos # (Auto) 200 Baso # (Auto) 0 Sodium Potassium Chloride Carbon Dioxide BUN Creatinine Estimated GFR BUN/Creatinine Ratio Glucose Lactate 1.0 Calcium Magnesium Total Bilirubin AST ALT Alkaline Phosphatase Total Protein Albumin Globulin Albumin/Globulin Ratio Lipase Procalcitonin < 0.05 11/02/19 11/02/19 02:10 02:10 WBC RBC Hgb Hct MCV MCH MCHC RDW Plt Count Neut % (Auto) Lymph % (Auto) [place] % (Auto) Eos % (Auto) Baso % (Auto) Neut # (Auto) Lymph # (Auto) [place] # (Auto) Eos # (Auto) Baso # (Auto) Sodium 138 Potassium 4.0 Chloride 105 Carbon Dioxide 23 BUN 31 H Creatinine 1.42 H Estimated GFR 48.1 L BUN/Creatinine Ratio 21.8 Glucose 136 H Lactate Calcium 9.5 Magnesium 1.6 Total Bilirubin 0.5 AST 35 ALT 47 Alkaline Phosphatase 79 Total Protein 7.1 Albumin 4.1 Globulin 3.0 Albumin/Globulin Ratio 1.4 Lipase 156 Procalcitonin Assessment & Plan Assessment & Plan narrative: This is a 78-year-old male who presented to the ER yesterday afternoon complaining of left lower quadrant abdominal pain that was stable and was discharged on antibiotics only to return with worsening abdominal pain. 1. Segmental colitis, acute, present on admission, active -CT imaging in the ER initially with segmental thickening of descending colon, consistent with colitis. This may be infectious colitis or segmental colitis associated with diverticulosis (SCAD) -increasing leukocytosis from 12.7-13.2 in 12 hours, negative procalcitonin at less than 0.05 and lactic acid of 1.0. Repeat labs pending today. -patient been discharged from the ER this afternoon on oral Cipro and Flagyl following a dose of each administered IV in the ER, he did not take any oral medications after discharge from the ED. -continue Cipro 400 mg IV every 12 hours. -continue metronidazole 500 mg IV every 8 hours. -surgery consultation requested, Dr. Espinosa. -will obtain GI PCR panel to evaluate for infectious etiology, however he has not had a bowel movement since yesterday morning. -patient remain NPO, normal saline 100 cc/hour until surgery recommendations -further differential includes malignancy, ischemia (however this is unlikely at this time given his well appearance and lack of pain out of proportion), less likely IBD. 2. Chronic kidney disease stage 3, present on admission, active -patient has a stable creatinine, this afternoon was found to be 1.43, this morning is 1.42. BUN is elevated from 27 to 31. Baseline creatinine is 1.2. -the patient does not present as dehydrated and has been eating and drinking. -will continue hydration with normal saline at 100 cc/hour. -will avoid renal toxic agents though the patient's creatinine did not worsen following CT with contrast. -will renal dose medications as indicated. -will follow renal function. 3. Hypertension, chronic, stable. -adequate blood pressure control with pressure of 130/72 on admission. -will continue patient's home regimen of valsartan 80 mg daily. 4. Dyslipidemia, chronic, stable. Will continue patient's home regimen of atorvastatin 20 mg daily at bedtime. 5. Gout, chronic, stable. -patient reports last gouty flare was over 2 years ago, no history of kidney stones. -will continue allopurinol 300 mg daily. VTE prophylaxis: Bilateral SCDs, no chemical prophylaxis due to hematochezia. IV fluid: Normal saline 100 cc/hour. Diet: NPO, Code status: FULL CODE. Quality VTE Deep Vein Thrombosis/Pulmonary Embolism Present on Admission: No
[2019-11-02] MEDS: allopurinoL 300 MG TABLET PO (10:20)
--- NOTE | 2019-11-02 10:57 | CM.IDA ---
Initial DCP Assessment Note: Pt is a 78 yo male, resident of [facility]. Pt admitted inpatient w/colitis, surgery consult pending PCP: Chidi Singleton Payer: TAMARA/Milind Met w/pt this morning, introduced role. 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 Pt hires someone to help w/his garden and has a house calls nurse. No h/o HH or SNF Pt expects to return home w/supportive once medically cleared, he is appreciative of the visit and will contact [facility] team if any DC needs or concerns arise. P: DC home expected w/spouse via pov MITESH Alvarado Discharge Planning/Care Management CM Discharge Assessment Start: 11/02/19 10:52 Freq: Status: Active Protocol: Document 11/02/19 10:52 JOSE (Rec: 11/02/19 10:57 JOSE [id number]) Discharge Planning Assessment Assigned Nanoelectronics Engineer MITESH De La O DPOA/Assigned Designee Name Che Sosa, spouse Contact Information [phone] [place] Is Advance Directives? No Advance Directives on File No History Provided By Patient Prior Living Arrangements House Household Members spouse Type of transporation used prior to Drives own vehicle admit Willing to Return to Facility? No Independent with ADL's Yes Is patient alert and oriented? Yes Barriers to Discharge No Discharge Plan Home Transportation Arrangement Spouse Referrals Initiated None needed Whiteboard Updated in Patient Room with Yes name and ext. # of Nanoelectronics Engineer
--- NOTE | 2019-11-02 11:18 | P.CONS_ITS ---
History of Present Illness Consult details Date Patient Seen: 11/02/19 Time Patient Seen: 11:18 Chief complaint: colitis Reason for consult: Colitis, abdominal pain Requesting provider: Rick Francisco Narrative: This is a 78 yo man with history of CKD3, spinal stenosis, hyperlipidemia, HTN, appendectomy at age 11, rotator cuff surgery. Denies ever having a heart attack or a stroke. The patient c/o focal LLQ abdominal pain, diarrhea, and rectal bleeding since Tuesday. He denies fevers, nausea, vomiting. He came into the ER yesterday with complaint of rectal bleeding for 3-4 days. His hgb was 15, his WBC was 12.7, and had a CT scan c/w segmental colitis. He went home with cipro and flagyl. He felt his pain increased overnight, and so he returned and was admitted to the hospitalist service. His WBC on return to the ER is 13.2, and hgb 14.8. He says he sees bright red blood when he wipes his bottom, but denies rectal pain. His stool is thin and black, and he says he is having increasing abdominal distension since his initial presentation. He continues to pass gas and small amounts of stool. He says his last colonoscopy was two years ago at [facility] in [place]. He recalls it was positive for polyps which were removed. He does not recall being told about diverticular disease or other concerns. ROS: As per HPI. Otherwise, he denies urinary symptoms, chest pain, SOB. Thirteen system review is otherwise negative other than as mentioned below and in HPI. PE: GENERAL: Alert, comfortable. Appears stated age. Answers questions promptly and appropriately. Vital signs noted. HENT: Normocephalic, atraumatic. Hearing intact. Oral mucosa is pink and moist. EYES: Conjunctiva pink, sclera white, no periorbital swelling. CARDIOVASCULAR: Regular rate. No pedal edema. RESPIRATORY: Non-tachypneic, breathing comfortably on room air. Occasional cough. GASTROINTESTINAL: Abdomen soft, mildly distended, focally TTP in the LLQ; no left flank tenderness, no right lower quadrant symptoms, negative Rovsing's sign GENITALURINARY: No flank tenderness. MUSCULOSKELETAL: Equal tone and mass bilaterally. SKIN: Warm, dry, soft, appropriate color for ethnicity. No other lesions, franki hes, or wounds. NEURO: Alert and Oriented X 3. No gross sensory deficits, or cognitive issues. PSYCH: Appropriate affect and mood. Meds Home Medications and Allergies Home Medications Medication Instructions Recorded Confirmed Type allopurinol 300 mg PO QDAY #90 tab 09/01/16 11/02/19 Rx atorvastatin [Lipitor] 20 mg PO Q EVENING #90 tab 09/01/16 11/02/19 Rx triamcinolone acetonide 1 kari TOPICAL SEE INSTRUCTIONS 02/10/17 11/02/19 Rx #454 gm valsartan 80 mg tablet 80 mg PO DAILY 04/02/19 11/02/19 History ciprofloxacin HCl 500 mg PO BID 7 Days #14 tab 11/01/19 11/02/19 Rx metronidazole [Flagyl] 500 mg PO TID 7 Days #21 tab 11/01/19 11/02/19 Rx Allergies Allergy/AdvReac Type Severity Reaction Status Date / Time No Known Drug Allergies Allergy Verified 05/21/19 13:52 Exam Vital Signs (past 8 hours): - 11/02/19 05:46 11/02/19 06:19 11/02/19 09:00 Temperature 98.0 F 98.7 F Pulse Rate 74 69 Respiratory Rate 16 16 Blood Pressure 103/65 106/67 Pulse Oximetry 95 95 94 11/02/19 10:00 Temperature Pulse Rate Respiratory Rate Blood Pressure Pulse Oximetry 94 Oxygen Delivery Method Room Air Oxygen Flow Rate [address] scan - abdomen: Radiologist's impression: Patient: Ranjit Sosa JMR#: [id number] : 1940Acct:[id number] Age/Sex: 78 / MDate of Service: 11/01/19 Loc: ED Accession Number: [id number] Procedure: CT abdomen pelvis w con Ordering Provider: Sara Lopez PROCEDURE: CT ABDOMEN PELVIS W CON INDICATIONS: RUQ, lower mid abd pain with blood in stool TECHNIQUE: After the administration of intravenous contrast, 5 mm thick sections acquired from the diaphragm to the symphysis. 5 mm coronal and sagittal reformats were acquired. For radiation dose reduction, the following was used: automated exposure control, adjustment of mA and/or kV according to patient size. COMPARISON: None. FINDINGS: Image quality: Excellent. ABDOMEN: Lung bases: Lung bases are clear. Heart size is normal. Solid organs: A 1.0 x 2.0 cm hypodensity in the anterior left hepatic lobe adjacent to the falciform ligament most likely secondary to focal fat. Hepatic steatosis. Liver is normal in size and enhancement. Gallbladder is mildly distended. Biliary system is non dilated. Pancreas enhances normally. Spleen is normal in size and enhancement. No adrenal nodules. Kidneys demonstrate normal size and enhancement, without hydronephrosis. Bilateral renal cysts. Peritoneum and bowel: There is segmental thickening of descending colon, consistent with colitis. Appendix is not visualized. Bowel loops demonstrate normal wall thickness and caliber. No free fluid or air. Nodes and vessels: No retroperitoneal or mesenteric adenopathy by size criteria. Aorta and inferior vena cava are normal in size. Miscellaneous: No ventral hernias. PELVIS: Genitourinary: Bladder wall thickness is normal. Small Hutch bladder diverticulum on the right side. Prostate is enlarged. Miscellaneous: No inguinal hernias or adenopathy. Bones: No suspicious bony lesions. No vertebral body compression fractures. IMPRESSION: 1. Segmental thickening of descending colon consistent with segmental colitis. Please correlate clinically. After adequate treatment, colonoscopy is suggested for followup evaluation to rule out colon cancer patient could have similar CT appearance. 2. Diverticulosis without acute diverticulitis. 3. Enlarged prostate. 4. Hepatic steatosis. 5. Bilateral renal cysts. Labs Result Diagrams: 11/02/19 02:10 11/02/19 02:10 Labs: Laboratory Results - last 24 hr 11/02/19 11/02/19 11/02/19 02:10 02:10 02:10 WBC 13.2 H RBC 4.35 L Hgb 14.8 Hct 43.2 MCV 99.3 MCH 34.0 MCHC 34.2 RDW 13.6 Plt Count 184 Neut % (Auto) 72.6 Lymph % (Auto) 13.9 L [place] % (Auto) 11.4 Eos % (Auto) 1.8 L Baso % (Auto) 0.3 Neut # (Auto) 9600 H Lymph # (Auto) 1800 [place] # (Auto) 1500 H Eos # (Auto) 200 Baso # (Auto) 0 Sodium Potassium Chloride Carbon Dioxide BUN Creatinine Estimated GFR BUN/Creatinine Ratio Glucose Lactate 1.0 Calcium Magnesium Total Bilirubin AST ALT Alkaline Phosphatase Total Protein Albumin Globulin Albumin/Globulin Ratio Lipase Procalcitonin < 0.05 11/02/19 11/02/19 02:10 02:10 WBC RBC Hgb Hct MCV MCH MCHC RDW Plt Count Neut % (Auto) Lymph % (Auto) [place] % (Auto) Eos % (Auto) Baso % (Auto) Neut # (Auto) Lymph # (Auto) [place] # (Auto) Eos # (Auto) Baso # (Auto) Sodium 138 Potassium 4.0 Chloride 105 Carbon Dioxide 23 BUN 31 H Creatinine 1.42 H Estimated GFR 48.1 L BUN/Creatinine Ratio 21.8 Glucose 136 H Lactate Calcium 9.5 Magnesium 1.6 Total Bilirubin 0.5 AST 35 ALT 47 Alkaline Phosphatase 79 Total Protein 7.1 Albumin 4.1 Globulin 3.0 Albumin/Globulin Ratio 1.4 Lipase 156 Procalcitonin Assessment & Plan Assessment and plan (1) Colitis: Current visit: Yes Status: Acute (2) Central stenosis of spinal canal: Current visit: No Status: Acute (3) Stage 3 chronic kidney disease: Current visit: No Status: None (4) Hypertension: Current visit: No Status: Acute (5) Leukocytosis: Current visit: Yes Status: Acute Assessment & Plan narrative: This is a 78 yo man with segmental thickening of his descending colon with focal LLQ abdominal pain and leukocystosis. Likely etiologies are ischemic, infectious, IBD, or less likely, cancer. At this point, I recommend supportive care, bowel rest, and close monitoring of his symptoms and labs. Repeat CT scan with IV contrast should be obtained if his symptoms worsen or his labs and exam do not improve as expected. IV hydration Bowel rest PO water/ice chips for comfort PO pain med PRN Ambulate frequently Daily labs, replete electrolytes K>4, Mag >2 IV antibiotics Repeat labs/imaging if worsening symptoms Time Spent With Patient Time with patient: 15-24 minutes
[2019-11-02] MEDS: MAGNESIUM SULFATE 2 GM/50 ML PIGGYBACK IV (12:22)
[2019-11-02 13:46] LABS: Campylobacter Not Detected (Not Detect); Plesiomonsa shigelloides Not Detected (Not Detect); Salmonella Not Detected (Not Detect); Vibrio Not Detected (Not Detect); Vibrio cholerae Not Detected (Not Detect)
[2019-11-02 13:47] LABS: Adenovirus F 40/41 Not Detected (Not Detect); Astrovirus Not Detected (Not Detect); Cryptosporidium Not Detected (Not Detect); Cyclospora cayetanensis Not Detected (Not Detect); Entamoeba histolytica Not Detected (Not Detect); Enteroaggregative E.coli Not Detected (Not Detect); Enteropathogenic E.coli Not Detected (Not Detect); Enterotoxigenic E.coli It/st Not Detected (Not Detect); Giardia lamblia Not Detected (Not Detect); Norovirus GI/GII Not Detected (Not Detect); Rotavirus A Not Detected (Not Detect); Sapovirus Not Detected (Not Detect); Shiga-like toxin-prod E.coli Not Detected (Not Detect); Shigella/Enteroinvasive E.coli Not Detected (Not Detect); Yersinia enterocolitica Not Detected (Not Detect)
[2019-11-02 13:50] LABS: Clostridium difficile toxin AB Detected (Not Detect)
[2019-11-02] MEDS: VANCOMYCIN 125 MG CAPSULE PO ×3 (14:26→20:59)
[2019-11-02] MEDS: HYDROMORPHONE 0.5 MG INJ IV (14:35)
--- NOTE | 2019-11-02 14:42 | PC.NURSE ---
Day shift note: Patient awake, alert, and pleasant. SCDs in place throughout shift. Nickel size maroon stool this shift, sent to lab for analysis, resulted + C. Diff. Contact/Droplet precautions maintained. VSS and afebrile. Tele: NSR. IVF infusing, voiding. Calls appropriately for staff assist. NPO. COVID-19 pending
[2019-11-02 15:22] LABS: Add Manual Diff / Slide Review NO; Basophils Absolute Auto 0 /uL (0-100); Basophils Percent Auto 0.2 % (0-2); Eosinophils Absolute Auto 300 /uL (0-450); Eosinophils Percent Auto 2.6 % (2-4); Hematocrit 41.5 % (41-53); Hemoglobin 13.9 g/dL (13.5-17.5); Lymphocytes Absolute Auto 2100 /uL (1100-4500); Lymphocytes Percent Auto 21.7 % (25-40); Mean Corpuscular HGB Conc 33.5 % (30-36); Mean Corpuscular Hemoglobin 33.7 PG (26-34); Mean Corpuscular Volume 100.6 fL (80-100); Monocytes Absolute Auto 1000 /uL (0-900); Monocytes Percent Auto 10.2 % (3-14); Neutrophils Absolute Auto 6400 /uL (1500-7000); Neutrophils Percent Auto 65.3 % (50-75); Platelet Count 153 X10^3/uL (150-400); Red Blood Cell Count 4.13 X10^6/uL (4.5-5.9); Red Cell Distribution Width 13.5 % (11.6-14.8); White Blood Cell Count 9.9 X10^3/uL (4.5-11.0)
[2019-11-02 15:41] LABS: BUN Creatinine Ratio 18.8 (6-22); Blood Urea Nitrogen 24 mg/dL (9-20); Calcium 8.6 mg/dL (8.4-10.2); Carbon Dioxide 26 mmol/L (22-32); Chloride 105 mmol/L (98-107); Estimated Glomerular Filt Rate 54.2 mL/min (>60); Glucose 100 mg/dL (80-110); HEMOLYSIS < 15 (0-50); Potassium 4.2 mmol/L (3.4-5.1); Sodium 137 mmol/L (137-145)
[2019-11-02] MEDS: ATORVASTATIN 20 MG TABLET PO (20:58)
[2019-11-02] MEDS: VALSARTAN 80 MG TABLET PO (20:59)
[2019-11-03 01:00] VITALS: O2SAT 97
[2019-11-03] MEDS: SODIUM CHLORIDE 0.9% 1,000 ML 125 ML IV (05:00)
[2019-11-03 05:36] LABS: Add Manual Diff / Slide Review NO; Basophils Absolute Auto 0 /uL (0-100); Basophils Percent Auto 0.3 % (0-2); Eosinophils Absolute Auto 300 /uL (0-450); Eosinophils Percent Auto 3.1 % (2-4); Hematocrit 40.7 % (41-53); Lymphocytes Absolute Auto 1800 /uL (1100-4500); Lymphocytes Percent Auto 21.5 % (25-40); Mean Corpuscular HGB Conc 34.5 % (30-36); Mean Corpuscular Hemoglobin 34.4 PG (26-34); Mean Corpuscular Volume 99.9 fL (80-100); Monocytes Absolute Auto 800 /uL (0-900); Monocytes Percent Auto 9.4 % (3-14); Neutrophils Absolute Auto 5400 /uL (1500-7000); Neutrophils Percent Auto 65.7 % (50-75); Platelet Count 164 X10^3/uL (150-400); Red Blood Cell Count 4.07 X10^6/uL (4.5-5.9); Red Cell Distribution Width 13.5 % (11.6-14.8); White Blood Cell Count 8.3 X10^3/uL (4.5-11.0)
[2019-11-03 05:45] LABS: BUN Creatinine Ratio 16.8 (6-22); Blood Urea Nitrogen 19 mg/dL (9-20); Calcium 8.6 mg/dL (8.4-10.2); Carbon Dioxide 25 mmol/L (22-32); Chloride 107 mmol/L (98-107); Estimated Glomerular Filt Rate > 60.0 mL/min (>60); Glucose 93 mg/dL (80-110); HEMOLYSIS < 15 (0-50); Potassium 4.4 mmol/L (3.4-5.1); Sodium 137 mmol/L (137-145)
[2019-11-03 05:53] VITALS: BP 120/71; PULSE 69; RESP 16; TEMP 36.6; O2SAT 95
[2019-11-03 08:00] VITALS: BP 117/70; PULSE 72; RESP 16; TEMP 36.8; O2SAT 96
--- NOTE | 2019-11-03 08:43 | P.DS_ITS ---
History of Present Illness History of Present Illness Date Patient Seen: 11/03/19 Time Patient Seen: 08:43 Chief complaint: colitis Narrative: As per MARQUISE Stephens: Mr. Ranjit Sosa is a 78-year-old male with past medical history of CKD 3, hypertension, hyperlipidemia, gout and spinal stenosis who returns to the emergency department with worsening abdominal pain. He had presented to the emergency room yesterday afternoon with complaints of bright red blood per rectum for the past 3-4 days. At that time he complains of pain in the left lower quadrant that describes as dull and aching. He returns this morning with worsening pain stating he has been unable to sleep and could not lay on his side and reports abdominal distension. He rates his pain as 7/10. He continues to deny having fevers or chills and has had no further bloody stools since yesterday morning. The patient was discharged from the ER this afternoon on oral antibiotics with a follow-up plan to which the patient was agreeable. He was provided prescription for Cipro and Flagyl which she had not yet obtained. Following discharge the patient consumed a steak and potatoes and salad dinner and stated a local hotel as he lives on [facility]. He denies complaints of headaches or dizziness, flu or cold symptoms. He has had no chest pain or palp itations, shortness of breath cough or wheezing. Has had no heartburn, nausea or vomiting. He denies difficulty urinating. He is independent in all activities of daily living. Upon arrival to the ER the patient remains afebrile with a temperature of 98.2?, heart rate 92, blood pressure 130/72, respirations 15 saturating 100% on room air. CT exam obtained earlier showed segmental colitis and diverticulosis without diverticulitis. On laboratory analysis the patient has had an increase in his white count from 12.7-13.2. His hemoglobin dropped from 15.5 to 14.8 without continued evidence of bleeding. On chemistries electrolytes are within normal range and has a BUN increased to 31 from 20/7 and a stable creatinine tonight at 1.42. His magnesium is 1.6 and his liver functions are within normal limits and has a lipase of 156. His lactate is 1.0 and procalcitonin is less than 0.05. EKG obtained earlier today shows a sinus rhythm with ventricular rate of 76 and a right bundle branch block. Does have inverted T-waves in lead 3 and V1 and V2. Patient is admitted to the medicine service for colitis. Discharge Providers Provider Date of admission: 11/02/19 02:18 Discharge Date: 11/03/19 Primary care physician: Chidi Singleton MD Consults: 11/02/19 02:28 Consult to Discharge Planning Routine Comment: 11/02/19 03:12 Consult to General Surgery Routine Comment: Consulting Provider: Angelito Samuel Reason for consultation: Abdominal Pain, peritonitis, BRBPR Has provider been notified: No Discharge provider: Rick Francisco DO Summary Hospital Course Discharge Diagnosis: Please see hospital course by problem list below. Hospital Course: This is a 78-year-old male who presented to the ER complaining of left lower quadrant abdominal pain that was stable and was discharged on antibiotics only to return with worsening abdominal pain. He was admitted with segmental colitis. Initially he had not had any bowel movements, COVID 19 was sent after surgical recommendations given case reports of patients with isolated GI symptoms. Shortly after testing was sent, patient had another bowel movement, GI panel was C. diff positive. Patient's cipro and flagy were discontinued and he was put on oral vancomycin. He improved rapidly after starting vancomycin orally and was discharged home the following day. 1. Segmental colitis, acute, present on admission, active -CT imaging in the ER initially with segmental thickening of descending colon, consistent with colitis. -increasing leukocytosis on admission now improving to 8.3 on day of discharged. -patient been discharged from the ER initlally on oral Cipro and Flagyl following a dose of each administered IV in the ER, he did not take any oral medications after discharge from the ED. He was continued on this until his stool PCR came back positive for C. diff. He was changed to oral vancomycin. He improved rapidly and is stable for discharge home. -surgery consultation appreciated, Dr. Espinosa. -he should obtain an outpatient colonoscopy in a coupole of months per surgery r ecommendations to make sure there is no underlying malignant pathology, which is considered less likely given recent colonoscopy approx. 2 years ago. 2. Chronic kidney disease stage 3, present on admission, active -patient's baseline creatinine appeared to be around 1.2. It was 1.4 on admission and improved to 1.13 on day of discharge. 3. Hypertension, chronic, stable. -adequate blood pressure control with pressure of 130/72 on admission. -no changes to home regimen of valsartan 80 mg daily. 4. Dyslipidemia, chronic, stable. continue patient's home regimen of atorvastatin 20 mg daily at bedtime. 5. Gout, chronic, stable. -patient reports last gouty flare was over 2 years ago, no history of kidney stones. -will continue allopurinol 300 mg daily. Dispo: Discharge home with 10 days of PO vancomycin. Status at Discharge Cognitive/behavioral status at discharge: oriented Functional status at discharge: independent ambulation Overall status at discharge: patient is progressing back to baseline Time Spent with Patient Time spent: Greater than 30 minutes Exam Vital Signs (past 8 hours): - 11/03/19 01:00 11/03/19 05:53 11/03/19 08:00 Temperature 97.9 F 98.3 F Pulse Rate 69 72 Respiratory Rate 16 16 Blood Pressure 120/71 117/70 Pulse Oximetry 97 95 96 Oxygen Delivery Method Room Air Oxygen Flow Rate 0 Narrative Exam Narrative: GENERAL APPEARANCE: Well developed, well nourished, in no acute distress but winces in pain with laugh. SKIN: Inspection of the skin reveals no rashes, ulcerations or petechiae. HEENT: Normocephalic atraumatic, extraocular muscles are intact, oropharynx is clear and mucous membranes are moist, neck is supple without adenopathy NECK: Supple and symmetric. There was no thyroid enlargement, and no tenderness, or masses were felt. CHEST: Normal AP diameter and normal contour without any kyphoscoliosis. LUNGS: Auscultation of the lungs revealed no wheezes, rhonchi, or rales. CARDIOVASCULAR: There was a regular rate and rhythm without any murmurs, gallops, rubs. Peripheral pulses were 2+ and symmetric. ABDOMEN: Soft non-distended. Very minimally tender LLQ, markedly improved abdominal exam. MUSCULOSKELETAL: There was no tenderness or effusions noted. Muscle strength and tone were normal. EXTREMITIES: No cyanosis, clubbing or edema. NEUROLOGIC: Alert and oriented x 3. Normal affect. Gait was normal. Strength is +5/5 in the Upper Extremities and Lower Extremities Bilaterally. Sensation to touch was normal. Objective Labs Result Diagrams: 11/03/19 05:25 11/03/19 05:25 Labs: Laboratory Results - last 24 hr 11/02/19 11/02/19 11/02/19 12:00 15:15 15:15 WBC 9.9 RBC 4.13 L Hgb 13.9 Hct 41.5 MCV 100.6 H MCH 33.7 MCHC 33.5 RDW 13.5 Plt Count 153 Neut % (Auto) 65.3 Lymph % (Auto) 21.7 L [place] % (Auto) 10.2 Eos % (Auto) 2.6 Baso % (Auto) 0.2 Neut # (Auto) 6400 Lymph # (Auto) 2100 [place] # (Auto) 1000 H Eos # (Auto) 300 Baso # (Auto) 0 Sodium 137 Potassium 4.2 Chloride 105 Carbon Dioxide 26 BUN 24 H Creatinine 1.28 H Estimated GFR 54.2 L BUN/Creatinine Ratio 18.8 Glucose 100 Calcium 8.6 Magnesium Stl C. cayetanensis PCR Not detected Stool Rotavirus (PCR) Not detected Stool Adenovirus (PCR) Not detected Stool Astrovirus (PCR) Not detected Stool Cryptosporidium PCR Not detected Stl E.coli Shiga Tox PCR Not detected St Sh/Enteroin Ecoli PCR Not detected Stool E coli O157 PCR Not Reportable Stl Enterotoxigenic E PCR Not detected Stool EPEC (PCR) Not detected Stl E. histolytica PCR Not detected Stool Giardia Lamblia PCR Not detected Stool Sapovirus (PCR) Not detected Stl P. shigelloides PCR Not detected St Y.enterocolitica PCR Not detected Stool Vibrio (PCR) Not detected Stl Vibrio cholerae PCR Not detected Stl Enteroaggr Ecoli PCR Not detected Stl Norovirus GI/GII PCR Not detected Campylobacter (PCR) Not detected C. difficile Tox (PCR) Detected H Salmonella (PCR) Not detected 11/03/19 11/03/19 05:25 05:25 WBC 8.3 RBC 4.07 L Hgb 14.0 Hct 40.7 L MCV 99.9 MCH 34.4 H MCHC 34.5 RDW 13.5 Plt Count 164 Neut % (Auto) 65.7 Lymph % (Auto) 21.5 L [place] % (Auto) 9.4 Eos % (Auto) 3.1 Baso % (Auto) 0.3 Neut # (Auto) 5400 Lymph # (Auto) 1800 [place] # (Auto) 800 Eos # (Auto) 300 Baso # (Auto) 0 Sodium 137 Potassium 4.4 Chloride 107 Carbon Dioxide 25 BUN 19 Creatinine 1.13 Estimated GFR > 60.0 BUN/Creatinine Ratio 16.8 Glucose 93 Calcium 8.6 Magnesium 2.0 Stl C. cayetanensis PCR Stool Rotavirus (PCR) Stool Adenovirus (PCR) Stool Astrovirus (PCR) Stool Cryptosporidium PCR Stl E.coli Shiga Tox PCR St Sh/Enteroin Ecoli PCR Stool E coli O157 PCR Stl Enterotoxigenic E PCR Stool EPEC (PCR) Stl E. histolytica PCR Stool Giardia Lamblia PCR Stool Sapovirus (PCR) Stl P. shigelloides PCR St Y.enterocolitica PCR Stool Vibrio (PCR) Stl Vibrio cholerae PCR Stl Enteroaggr Ecoli PCR Stl Norovirus GI/GII PCR Campylobacter (PCR) C. difficile Tox (PCR) Salmonella (PCR) Discharge Plan Discharge Plan Patient Disposition: Home Discharge comment: You were admitted to the hospital after having some bloody bowel movements, on CT imaging you were found to have colitis. Stool testing showed that you had an infectious cause called C. difficile. You will complete oral treatment at home. Surgery recommended that you have another colonoscopy in a few months to make sure there is no underlying pathology causing the findings on your CT scan. Discharge orders & Medications Prescriptions: New vancomycin 125 mg capsule 125 mg PO QID 10 Days Qty: 40 RF: 0 Continued atorvastatin [Lipitor] 20 MG tablet 20 mg PO Q EVENING Qty: 90 RF: 3 allopurinol 300 MG tablet 300 mg PO QDAY Qty: 90 RF: 3 triamcinolone acetonide 0.1 % cream 1 kari Topical SEE INSTRUCTIONS Qty: 454 RF: 3 valsartan 80 mg tablet 80 mg PO DAILY RF: 0 Discontinued metronidazole [Flagyl] 500 mg tablet 500 mg PO TID 7 Days Qty: 21 RF: 0 ciprofloxacin HCl 500 mg tablet 500 mg PO BID 7 Days Qty: 14 RF: 0 Follow up/Referrals: Chidi Singleton MD [Primary Care Provider] - Discharge Health Status Health Concerns: C. difficile colitis Diet/Activity/Treatments Diet: Diet as Tolerated Activity: As tolerated Discharge Data Primary Care Provider: Chidi Singleton Quality VTE Deep Vein Thrombosis/Pulmonary Embolism Present on Admission: No
[2019-11-03] MEDS: VANCOMYCIN 125 MG CAPSULE PO (09:28)
[2019-11-03] MEDS: allopurinoL 300 MG TABLET PO (09:28)
[2019-11-03 09:55] VITALS: O2SAT 96
--- NOTE | 2019-11-03 11:07 | PC.NURSE ---
Discharge Pt denies pain. No BM for 2 days, pt reports first solid food was this morning. PIV and tele removed prior to d/c. d/c instructions provided to pt. Aware to contact PCP to make f/u apt and also if any additional questions or concerns. pt reports he took all belongings with him. left in w/c with RN escort to his truck in the parking lot. Rx was transmitted to [facility] per pt request. pt left with mask in place and instructed to keep in on until home.
[2019-11-04 05:07] LABS: COVID19 Sendout Not Detected (Not Detected)
== END 2019-11-03 11:00 | disposition home or self-care (01) | DRG 373 ==
LOC: ED 02:07 → AC 02:19
PROVIDERS: Internal Medicine; Surgery; Admitting Provider Nurse Practitioner Adult Health; Emergency Provider Emergency Medicine; Family Provider Family Medicine; PCP Family Medicine; Visit Provider Nurse Practitioner Adult Health
DX: A04.72 Enterocolitis due to Clostridium difficile, not specified as recurrent (principal); I12.9 Hypertensive chronic kidney disease with stage 1 through stage 4 chronic kidney disease, or unspecified chronic kidney disease; N18.3 Chronic kidney disease, stage 3 (moderate); E78.5 Hyperlipidemia, unspecified; M10.9 Gout, unspecified; Z87.891 Personal history of nicotine dependence; Z03.818 Encounter for observation for suspected exposure to other biological agents ruled out
CPT/HCPCS: 36415; 74177; 80048; 80053; 82272; 83605; 83690; 83735; 84145; 85025; 85610; 85730; 87507; 87635; 93005; 96361; 96365; 96374; 99232; 99284; J0744; J1170; J2270; Q9967